=== PATIENT | female | born 2000 | race Caucasian/White ===

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

== ENCOUNTER → 2019-01-17 | Outpatient (CLI) | payer MEDICAID, OTHER ==
--- NOTE | 2019-01-21 20:07 | SLEEPCENT ---
DATE OF PROCEDURE: 01/17/2019 Ordered by: LEIGH Verduzco Nocturnal polysomnography was performed for retitration of pressure therapy in this patient with obstructive sleep apnea syndrome. Apnea-hypopnea index 37.5. For testing, a [employer] [place] View full face mask of small size was used, 4 cm of water pressure were applied to the circuit and the lights were extinguished. 8 hours and 3 minutes of data were reviewed. There are 419.5 minutes of sleep identified. Sleep latency was normal at 14 minutes. REM latency was delayed at 231 minutes. Sleep architecture was fairly good. There were two REM cycles noted. Overall sleep efficiency 87.9%. The electrocardiogram showed a sinus rhythm with an average heart rate of 80 beats per minute. EEG showed reasonably normal waveforms for awake and sleep. There were 45 persistent respiratory events prompting an increase in C-PAP pressure to the optimal pressure of +13 with which the patient slept through REM without respiratory event or oxygen desaturation. Remaining measures of sleep physiology were normal. IMPRESSION Obstructive sleep apnea syndrome (G47.33) RECOMMENDATIONS Nightly use of pressure therapy 13 cm of water.
== END ==
LOC: M SLEEP 22:55
PROVIDERS: ATTEND Physician Assistant
DX: G47.33 Obstructive sleep apnea (adult) (pediatric) (principal)

== ENCOUNTER → 2019-03-05 | Outpatient (REF) | payer OTHER ==
[2019-03-06 12:24] LABS: BASO # 0.1 10^3/uL (0.0-0.2); BASO % 0.8 % (0.0-1.0); EOS # 0.1 10^3/uL (0.0-0.5); EOS % 0.9 % (0.0-3.0); HEMATOCRIT 40.9 % (36.0-47.0); HEMOGLOBIN 13.5 g/dl (12.0-15.5); LYMPH # 1.9 10^3/uL (1.5-5.0); LYMPH % 29.5 % (24.0-44.0); MEAN CORPUSCULAR HEMOGLOBIN 29.3 pg (27.0-33.0); MEAN CORPUSCULAR VOLUME 88.7 fl (80.0-96.0); MONO # 0.3 10^3/uL (0.0-0.8); MONO % 4.5 % (0.0-5.0); NEUTROPHILS # 4.1 10^3/uL (1.5-8.5); NEUTROPHILS % 63.7 % (36.0-66.0); PLATELET COUNT, AUTOMATED 335 10^3/uL (150-450); RED BLOOD COUNT 4.61 10^6/uL (4.00-5.40); WHITE BLOOD COUNT 6.4 10^3/uL (4.0-10.0)
[2019-03-06 12:35] LABS: ALBUMIN 3.8 GM/DL (3.2-5.2); ALT/SGPT 40 U/L (12-78); BILIRUBIN,TOTAL 0.5 MG/DL (0.2-1.0); BLOOD UREA NITROGEN 11 MG/DL (7-18); CALCIUM LEVEL 9.1 MG/DL (8.5-10.1); CARBON DIOXIDE LEVEL 30 MEQ/L (21-32); CHLORIDE LEVEL 104 MEQ/L (98-107); CHOLESTEROL LEVEL 125 MG/DL (<200); CHOLESTEROL RISK RATIO 3.906 (<5); CREATININE FOR GFR 0.83 MG/DL (0.55-1.30); FREE T4 0.85 NG/DL (0.78-1.33); GLUCOSE, FASTING 106 MG/DL (70-100); HDL CHOLESTEROL 32 MG/DL (>40); IRON (FE) 77 UG/DL (50-170); LDL CHOLESTEROL 56 MG/DL (<100); NON-HDL-C 93 MG/DL; POTASSIUM SERUM 4.1 MEQ/L (3.5-5.1); SODIUM LEVEL 140 MEQ/L (136-145); TOTAL PROTEIN 6.8 GM/DL (6.4-8.2); TRIGLYCERIDES LEVEL 187 MG/DL (<150)
[2019-03-06 14:16] LABS: HEMOGLOBIN A1c 5.5 %
== END ==
LOC: M SFHCCLAY 14:00
PROVIDERS: ATTEND Nurse Practitioner Family
DX: E03.9 Hypothyroidism, unspecified (principal); L30.9 Dermatitis, unspecified; E28.2 Polycystic ovarian syndrome; E61.1 Iron deficiency

== ENCOUNTER → 2019-10-08 | Outpatient (REF) | payer OTHER ==
[2019-10-09 13:29] LABS: ALBUMIN 3.5 GM/DL (3.2-5.2); ALT/SGPT 30 U/L (12-78); BILIRUBIN,TOTAL 0.2 MG/DL (0.2-1.0); BLOOD UREA NITROGEN 10 MG/DL (7-18); CARBON DIOXIDE LEVEL 28 MEQ/L (21-32); CHLORIDE LEVEL 107 MEQ/L (98-107); CREATININE FOR GFR 0.77 MG/DL (0.55-1.30); FREE T4 0.99 NG/DL (0.78-1.33); GLUCOSE, FASTING 101 MG/DL (70-100); SODIUM LEVEL 142 MEQ/L (136-145); TOTAL PROTEIN 7.3 GM/DL (6.4-8.2)
[2019-10-09 14:05] LABS: HEMOGLOBIN A1c 5.8 %
[2019-10-10 10:05] LABS: HEPATITIS C VIRUS ABY INDEX 0.2 INDEX (<0.8); HIV 1&2 SCREEN CENTAUR NEGATIVE (NEGATIVE)
== END ==
LOC: M SFHCCLAY 14:09
PROVIDERS: ATTEND Nurse Practitioner Family
DX: G47.33 Obstructive sleep apnea (adult) (pediatric) (principal); E28.2 Polycystic ovarian syndrome; E03.9 Hypothyroidism, unspecified

== ENCOUNTER 2020-04-28 09:15 | Outpatient (RCR) | payer OTHER | END 2020-05-06 | LOC: M PT 09:15 | PROVIDERS: ATTEND Nurse Practitioner Family | DX: Z51.89 Encounter for other specified aftercare (principal); G25.81 Restless legs syndrome; M54.5 Low back pain ==

== ENCOUNTER → 2020-06-02 | Outpatient (REF) | payer OTHER ==
[2020-06-02 16:07] LABS: HEMOGLOBIN A1c 5.6 %
[2020-06-02 16:19] LABS: ALBUMIN 3.6 GM/DL (3.2-5.2); ALT/SGPT 32 U/L (12-78); BILIRUBIN,TOTAL 0.2 MG/DL (0.2-1.0); BLOOD UREA NITROGEN 14 MG/DL (7-18); CALCIUM LEVEL 9.8 MG/DL (8.5-10.1); CARBON DIOXIDE LEVEL 30 MEQ/L (21-32); CHLORIDE LEVEL 108 MEQ/L (98-107); CREATININE FOR GFR 0.87 MG/DL (0.55-1.30); GLUCOSE, FASTING 76 MG/DL (70-100); POTASSIUM SERUM 4.2 MEQ/L (3.5-5.1); SODIUM LEVEL 142 MEQ/L (136-145); TOTAL PROTEIN 7.2 GM/DL (6.4-8.2)
== END ==
LOC: M SFHCCLAY 11:39
PROVIDERS: ATTEND Nurse Practitioner Family
DX: G47.33 Obstructive sleep apnea (adult) (pediatric) (principal); R73.09 Other abnormal glucose

== ENCOUNTER → 2021-01-13 | Outpatient (REF) | payer OTHER ==
[2021-01-14 11:25] LABS: BASO # 0.1 10^3/uL (0.0-0.2); BASO % 0.7 % (0.0-1.0); EOS % 0.4 % (0.0-3.0); HEMATOCRIT 41.5 % (36.0-47.0); LYMPH # 2.7 10^3/uL (1.5-5.0); MEAN CORPUSCULAR HEMOGLOBIN 29.9 pg (27.0-33.0); MEAN CORPUSCULAR HGB CONC 33.7 g/dl (32.0-36.5); MEAN CORPUSCULAR VOLUME 88.7 fl (80.0-96.0); MONO # 0.6 10^3/uL (0.0-0.8); MONO % 7.6 % (2.0-8.0); NEUTROPHILS # 4.1 10^3/uL (1.5-8.5); NEUTROPHILS % 54.6 % (36.0-66.0); PLATELET COUNT, AUTOMATED 300 10^3/uL (150-450); RED BLOOD COUNT 4.68 10^6/uL (4.00-5.40); WHITE BLOOD COUNT 7.4 10^3/uL (4.0-10.0)
[2021-01-14 11:54] LABS: HEMOGLOBIN A1c 5.2 %
[2021-01-14 11:57] LABS: ALBUMIN 4.1 GM/DL (3.2-5.2); ALT/SGPT 40 U/L (12-78); BILIRUBIN,TOTAL 0.6 MG/DL (0.2-1.0); BLOOD UREA NITROGEN 12 MG/DL (7-18); CALCIUM LEVEL 8.9 MG/DL (8.5-10.1); CARBON DIOXIDE LEVEL 27 MEQ/L (21-32); CHLORIDE LEVEL 104 MEQ/L (98-107); CHOLESTEROL LEVEL 147 MG/DL (<200); CHOLESTEROL RISK RATIO 4.454 (<5); CREATININE FOR GFR 0.88 MG/DL (0.55-1.30); FREE T4 0.91 NG/DL (0.76-1.46); GLOMERULAR FILTRATION RATE > 60.0 (>60); GLUCOSE, FASTING 72 MG/DL (70-100); HDL CHOLESTEROL 33 MG/DL (>40); IRON (FE) 91 UG/DL (50-170); LDL CHOLESTEROL 90 MG/DL (<100); NON-HDL-C 114 MG/DL; POTASSIUM SERUM 4.7 MEQ/L (3.5-5.1); SODIUM LEVEL 138 MEQ/L (136-145); TOTAL PROTEIN 7.5 GM/DL (6.4-8.2); TRIGLYCERIDES LEVEL 120 MG/DL (<150)
[2021-01-14 12:00] LABS: TOTAL 25(OH) VITAMIN D 29.5 NG/ML (30.0-100.0)
== END ==
LOC: M SFHCCLAY 15:53
PROVIDERS: ATTEND Nurse Practitioner Family
DX: L30.9 Dermatitis, unspecified (principal); E03.9 Hypothyroidism, unspecified; G47.33 Obstructive sleep apnea (adult) (pediatric); R73.09 Other abnormal glucose; E61.1 Iron deficiency; E28.2 Polycystic ovarian syndrome; E55.9 Vitamin D deficiency, unspecified

== ENCOUNTER → 2021-03-01 | Outpatient (REF) | payer OTHER ==
[2021-03-02 12:42] LABS: C REACTIVE PROTEIN QUANTITATIV 0.76 MG/DL (0.00-0.30); RHEUMATOID FACTOR QUANT < 10.0 IU/ML (<15.0)
[2021-03-03 20:11] LABS: ANA (HEP2) Negative (.); IgG P18 AB Absent (.); IgG P23 AB Absent (.); IgG P28 AB Absent (.); IgG P30 AB Absent (.); IgG P39 AB Absent (.); IgG P41 AB Absent (.); IgG P45 AB Absent (.); IgG P66 AB Absent (.); IgG P93 AB Absent (.); IgM P23 AB Absent (.); IgM P39 AB Absent (.); IgM P41 AB Absent (.); LYME IgG WB INTERPRETATION Negative (.); LYME IgM WB INTERPRETATION Negative (.)
== END ==
LOC: M SFHCCLAY 14:58
PROVIDERS: ATTEND Nurse Practitioner Family
DX: M25.50 Pain in unspecified joint (principal)

== ENCOUNTER → 2022-03-23 | Outpatient (CLI) | payer OTHER, MEDICAID ==
[2022-03-23 11:47] LABS: BASO % 0.6 % (0.0-1.0); EOS # 0.1 10^3/uL (0.0-0.5); EOS % 1.5 % (0.0-3.0); HEMATOCRIT 42.9 % (36.0-47.0); HEMOGLOBIN 13.9 g/dl (12.0-15.5); LYMPH # 2.3 10^3/uL (1.5-5.0); LYMPH % 34.8 % (24.0-44.0); MEAN CORPUSCULAR HEMOGLOBIN 29.6 pg (27.0-33.0); MEAN CORPUSCULAR HGB CONC 32.4 g/dl (32.0-36.5); MEAN CORPUSCULAR VOLUME 91.5 fl (80.0-96.0); MONO # 0.5 10^3/uL (0.0-0.8); MONO % 7.6 % (2.0-8.0); NEUTROPHILS # 3.6 10^3/uL (1.5-8.5); PLATELET COUNT, AUTOMATED 297 10^3/uL (150-450); RED BLOOD COUNT 4.69 10^6/uL (4.00-5.40); WHITE BLOOD COUNT 6.5 10^3/uL (4.0-10.0)
[2022-03-23 13:48] LABS: ALBUMIN 4.1 G/DL (3.2-5.2); ALT/SGPT 37 U/L (7.0-40); BILIRUBIN,TOTAL 0.2 MG/DL (0.3-1.2); BLOOD UREA NITROGEN 15 MG/DL (9-23); CALCIUM LEVEL 12.1 MG/DL (8.5-10.1); CARBON DIOXIDE LEVEL 30 MMOL/L (20-31); CHLORIDE LEVEL 103 MMOL/L (98-107); CREATININE FOR GFR 0.85 MG/DL (0.55-1.30); FREE T4 1.17 NG/DL (0.89-1.76); GLOMERULAR FILTRATION RATE > 60.0 (>60); GLUCOSE, FASTING 67 MG/DL (60-100); POTASSIUM SERUM 4.2 MMOL/L (3.5-5.1); SODIUM LEVEL 141 MMOL/L (136-145); THYROID STIMULATING HORMONE 3.364 uIU/ML (0.55-4.78)
== END ==
LOC: M WUC 08:50
PROVIDERS: ATTEND Nurse Practitioner Family
DX: E03.9 Hypothyroidism, unspecified (principal); L30.9 Dermatitis, unspecified; G47.33 Obstructive sleep apnea (adult) (pediatric); R73.09 Other abnormal glucose

== ENCOUNTER → 2022-03-23 | Outpatient (CLI) | payer OTHER, MEDICAID ==
[2022-03-23 13:48] LABS: HEMOGLOBIN A1c 4.9 % (4.0-6.0)
== END ==
LOC: M WUC 08:47
PROVIDERS: ATTEND Surgery
DX: Z86.39 Personal history of other endocrine, nutritional and metabolic disease (principal)

== ENCOUNTER → 2022-08-10 | Outpatient (CLI) | payer OTHER | LOC: M CARPUL 12:58 | PROVIDERS: ATTEND Nurse Practitioner Family | DX: R42 Dizziness and giddiness (principal) ==

== ENCOUNTER 2023-04-09 03:05 | Emergency (ER) | payer MEDICAID, OTHER ==
[~2023-04-09] VITALS: Ht 165.1 cm; Wt 96.6 kg
[2023-04-09 03:08] VITALS: TEMP 96.6
[2023-04-09 03:50] LABS: BASO % 0.4 % (0.0-1.0); EOS % 0.4 % (0.0-3.0); HEMATOCRIT 37.1 % (36.0-47.0); HEMOGLOBIN 13.2 g/dl (12.0-15.5); LYMPH # 2.5 10^3/uL (1.5-5.0); MEAN CORPUSCULAR HEMOGLOBIN 30.1 pg (27.0-33.0); MEAN CORPUSCULAR HGB CONC 35.6 g/dl (32.0-36.5); MEAN CORPUSCULAR VOLUME 84.5 fl (80.0-96.0); MONO # 0.5 10^3/uL (0.0-0.8); MONO % 5.6 % (2.0-8.0); NEUTROPHILS # 6.4 10^3/uL (1.5-8.5); NEUTROPHILS % 67.3 % (36.0-66.0); PLATELET COUNT, AUTOMATED 321 10^3/uL (150-450); RED BLOOD COUNT 4.39 10^6/uL (4.00-5.40); WHITE BLOOD COUNT 9.4 10^3/uL (4.0-10.0)
[2023-04-09] MEDS ORDERED: ONDANSETRON 4MG 2ML VIAL IV ONE (04:05)
[2023-04-09] MEDS ORDERED: NS 1,000 ML IV ONE (04:05)
[2023-04-09] MEDS ORDERED: KETOROLAC 30 MG/ML 1ML VIAL IV ONE (04:05)
[2023-04-09 04:24] LABS: LIPASE 24 U/L (12-53)
[2023-04-09 04:26] LABS: ALKALINE PHOSPHATASE 61 U/L (46-116); ALT/SGPT 18 U/L (7.0-40); AST/SGOT 15 U/L (<34); BILIRUBIN,DIRECT 0.2 MG/DL (<0.4); BILIRUBIN,TOTAL 0.5 MG/DL (0.3-1.2); BLOOD UREA NITROGEN 14 MG/DL (9-23); CALCIUM LEVEL 9.7 MG/DL (8.5-10.1); CARBON DIOXIDE LEVEL 22 MMOL/L (20-31); CHLORIDE LEVEL 106 MMOL/L (98-107); GLOMERULAR FILTRATION RATE > 60.0 (>60); GLUCOSE, FASTING 137 MG/DL (60-100); POTASSIUM SERUM 3.5 MMOL/L (3.5-5.1); SODIUM LEVEL 140 MMOL/L (136-145)
[2023-04-09] MEDS ORDERED: TAMSULOSIN 0.4 MG CAP PO ONE (04:50)
[2023-04-09 04:55] LABS: APPEARANCE, URINE TURBID (CLEAR); BACTERIA, URINE AUTO NEGATIVE (NEGATIVE); BILIRUBIN, URINE AUTO NEGATIVE (NEGATIVE); BLOOD, URINE BLOOD 2+ (NEGATIVE); COLOR, URINE RED (YELLOW); GLUCOSE, URINE (UA) AUTO NEGATIVE (NEGATIVE); KETONE, URINE AUTO 1+ mg/dL (NEGATIVE); LEUKOCYTE ESTERASE, URINE AUTO NEGATIVE (NEGATIVE); MUCUS, URINE SMALL (NEGATIVE); NITRITE, URINE AUTO NEGATIVE (NEGATIVE); PROTEIN, URINE AUTO 2+ mg/dL (NEGATIVE); RBC, URINE AUTO TNTC /HPF (0-3); SPECIFIC GRAVITY URINE AUTO 1.023 (1.002-1.035); SQUAMOUS EPITHELIAL CELL UR AU 18 /HPF (0-6); UROBILINOGEN, URINE AUTO 0.2 mg/dL (0.0-2.0); WBC, URINE AUTO 37 /HPF (0-3)
[2023-04-09] MEDS ORDERED: FLOM0.4C39 PO (05:18)
[2023-04-09] MEDS ORDERED: KETO10TAB PO (05:18)
[2023-04-09] MEDS ORDERED: ONDA4TAB6 PO (05:18)
[2023-04-09 05:48] VITALS: BP 128/83; O2SAT 99
== END 2023-04-09 05:50 | disposition home or self-care (01) ==
LOC: M ED 03:05
DX: N20.1 Calculus of ureter (principal); K21.9 Gastro-esophageal reflux disease without esophagitis; F32.A Depression, unspecified; F90.9 Attention-deficit hyperactivity disorder, unspecified type; E03.9 Hypothyroidism, unspecified; Z79.83 Long term (current) use of bisphosphonates; Z79.899 Other long term (current) drug therapy
CPT/HCPCS: 74176; 80048; 80076; 81001; 83690; 84702; 85025; 96361; 96374; 99284; J1885; J2405

== ENCOUNTER → 2023-04-12 | Outpatient (CLI) | payer OTHER, MEDICAID ==
[~2023-04-12] MED LIST: FLOM0.4C39 PO; KETO10TAB PO; ONDA4TAB6 PO
== END ==
LOC: M SLEEP 20:00
PROVIDERS: ATTEND Physician Assistant
DX: G47.33 Obstructive sleep apnea (adult) (pediatric) (principal)

== ENCOUNTER 2023-12-23 13:47 | Emergency (ER) | payer MEDICAID, OTHER ==
[~2023-12-23] VITALS: Ht 165.1 cm; Wt 99.1 kg
[~2023-12-23 13:47] MED LIST changes: +ONDA-282 PO; -ONDA4TAB6 PO
[2023-12-23 14:39] LABS: HEMATOCRIT 38.6 % (36.0-47.0); HEMOGLOBIN 13.1 g/dl (12.0-15.5); MEAN CORPUSCULAR HGB CONC 33.9 g/dl (32.0-36.5); MEAN CORPUSCULAR VOLUME 88.5 fl (80.0-96.0); PLATELET COUNT, AUTOMATED 297 10^3/uL (150-450); RED BLOOD COUNT 4.36 10^6/uL (4.00-5.40); WHITE BLOOD COUNT 13.2 10^3/uL (4.0-10.0)
[2023-12-23 15:00] LABS: ETHYL ALCOHOL (ETHANOL) < 0.003 % (0.000-0.010)
[2023-12-23 15:01] LABS: ALBUMIN 4.2 G/DL (3.2-5.2); ALKALINE PHOSPHATASE 57 U/L (46-116); ALT/SGPT 18 U/L (7.0-40); AST/SGOT 12 U/L (<34); BILIRUBIN,DIRECT 0.1 MG/DL (<0.4); BILIRUBIN,TOTAL 0.4 MG/DL (0.3-1.2); BLOOD UREA NITROGEN 11 MG/DL (9-23); CALCIUM LEVEL 9.2 MG/DL (8.5-10.1); CARBON DIOXIDE LEVEL 28 MMOL/L (20-31); CHLORIDE LEVEL 107 MMOL/L (98-107); CREATININE FOR GFR 0.95 MG/DL (0.55-1.30); GLOMERULAR FILTRATION RATE > 60.0 (>60); GLUCOSE, FASTING 66 MG/DL (60-100); POTASSIUM SERUM 3.8 MMOL/L (3.5-5.1); SALICYLATE LEVEL < 3.0 MG/DL (<30); SODIUM LEVEL 139 MMOL/L (136-145); TOTAL PROTEIN 7.2 G/DL (5.7-8.2)
[2023-12-23 15:03] LABS: THYROID STIMULATING HORMONE 0.999 uIU/ML (0.55-4.78)
[2023-12-23 15:09] LABS: AMPHETAMINES LEVEL URINE NEGATIVE (NEGATIVE); BARBITURATES URINE NEGATIVE (NEGATIVE); COCAINE METABOLITE URINE NEGATIVE (NEGATIVE)
[2023-12-23 15:10] LABS: CANNABINOIDS URINE NEGATIVE (NEGATIVE); METHADONE URINE NEGATIVE (NEGATIVE); OPIATES URINE NEGATIVE (NEGATIVE); PHENCYCLIDINE URINE NEGATIVE (NEGATIVE)
[2023-12-23 15:12] LABS: BENZODIAZEPINES URINE POSITIVE (NEGATIVE); HCG, SERUM QUALITATIVE NEGATIVE (NEGATIVE)
[2023-12-23] MEDS ORDERED: ALPR0.5T3 PO (16:12)
[2023-12-23] MEDS ORDERED: BUSP15TA47 PO (16:12)
[2023-12-23] MEDS ORDERED: TRAZ-189 PO (16:12)
[2023-12-23] MEDS ORDERED: CALC250T PO (16:12)
[2023-12-23] MEDS ORDERED: TRIA0.5O TOP (16:12)
[2023-12-23] MEDS ORDERED: ACET-897 PO (16:12)
[2023-12-23] MEDS ORDERED: HYDR-3363 PO (16:12)
[2023-12-23] MEDS ORDERED: B-12100010 PO (16:12)
[2023-12-23] MEDS ORDERED: THERTAB52 PO (16:12)
[2023-12-23] MEDS ORDERED: ALBU8.5H INH (16:12)
[2023-12-23] MEDS ORDERED: VITA100T77 PO (16:12)
[2023-12-23] MEDS ORDERED: DULO1CAP6 PO (16:12)
[2023-12-23] MEDS ORDERED: METH54TA PO (16:12)
[2023-12-23] MEDS ORDERED: HOME MED LIST COMPLETE! XX SCH (16:15)
[2023-12-23 19:47] VITALS: BP 130/66; TEMP 97.7; O2SAT 97
== END 2023-12-23 20:04 | disposition home or self-care (01) ==
LOC: EDBD 13:47 → M ED 13:47
DX: F32.A Depression, unspecified (principal); J45.909 Unspecified asthma, uncomplicated; G47.33 Obstructive sleep apnea (adult) (pediatric); E28.2 Polycystic ovarian syndrome; E03.9 Hypothyroidism, unspecified; E66.9 Obesity, unspecified; Z79.52 Long term (current) use of systemic steroids; Z79.899 Other long term (current) drug therapy